=== PATIENT | female | born 1960 | race Caucasian/White ===

== ENCOUNTER 2016-07-24 22:33 | Emergency (ER) | payer SELFPAY ==
[2016-07-25] MEDS ORDERED: CLONIDINE 0.2 MG/24 HR PATCH.TDWK TD ONE (00:10)
[2016-07-25] MEDS ORDERED: PROMETHAZINE HCL INJ 25 MG/1 ML VIAL IM ONE (00:11)
[2016-07-25] MEDS ORDERED: KETOROLAC TROMETHAMINE INJ/PF 30 MG/1 ML SDV IM ONE (00:12)
--- NOTE | 2016-07-25 00:17 | ER Document Report ---
ED General - General Chief Complaint: Shoulder Pain Stated Complaint: SHOULDER PAIN INTO RIGHT HAND AND SWELING Time Seen by Provider: 07/24/16 23:55 Notes: Patient is a 56-year-old female presents with complaint of some soreness and also some nausea. She says some diarrhea. She ran out of her Percocet on . That was 4 days ago. She is getting a new doctor in 1 will start re- prescribing her medications. She is concerned because she does have body aches and pain all over and wants help. She says most her pain comes from her neck and goes into her arms. This is a chronic pain that she has had for a long time and that is why she is on the chronic pain medicines. No new recent injuries or trauma. No recent fevers or infections. No other complaints at this time. Patient was hypertensive in triage. She does take blood pressure medications and has been taking her medications. TRAVEL OUTSIDE OF THE [place] IN LAST 30 DAYS: No - Related Data Allergies/Adverse Reactions: Penicillins Allergy (Verified 07/24/16 22:52) Sulfa (Sulfonamide Antibiotics) Allergy (Verified 07/24/16 22:53) Past Medical History - Social History Smoking Status: Unknown if Ever Smoked Frequency of alcohol use: None Drug Abuse: None Family History: Reviewed & Not Pertinent Patient has suicidal ideation: No Patient has homicidal ideation: No Renal/ Medical History: Denies: Hx Peritoneal Dialysis Review of Systems - Review of Systems Notes: My Normal Review Basic REVIEW OF SYSTEMS: CONSTITUTIONAL : Denies fever, chills, or sweats. Denies recent illness. EENT: Denies eye, ear, throat, or mouth pain or symptoms. Denies nasal or sinus congestion. CARDIOVASCULAR: Denies chest pain. RESPIRATORY: Denies cough, cold, or chest congestion. Denies shortness of breath, difficulty breathing, or wheezing. GASTROINTESTINAL: Denies abdominal pain. Denies nausea, vomiting, or diarrhea. Denies constipation. Last BM: MUSCULOSKELETAL: Chronic neck pain that radiates into her arms. SKIN: Denies rash or skin lesions. NEUROLOGICAL: Denies altered mental status or loss of consciousness. Denies headache. Denies weakness or paralysis or loss of use of either side. Denies problems with gait or speech. Denies sensory or motor loss. ALL OTHER SYSTEMS REVIEWED AND NEGATIVE. Physical Exam - Vital signs Vitals: Temp Pulse Resp BP Pulse Ox 98.2 F 99 16 201/111 H 97 07/24/16 22:49 07/24/16 22:49 07/24/16 22:49 07/24/16 22:49 07/24/16 22:49 - Notes Notes: General Appearance: Well nourished, alert, cooperative, no acute distress, moderate obvious discomfort. Vitals: reviewed, See vital signs table. Head: no swelling or tenderness to the head Eyes: PERRL, EOMI, Conjuctiva clear Neck: Supple, soreness to palpation over bilateral cervical paraspinal musculature and into the trapezius muscles Lungs: No wheezing, No rales, No rhonci, No accessory muscle use, good air exchange bilaterally. Heart: Normal rate, Regular rythm, No murmur, no rub Abdomen: Normal BS, soft, No rigidity, No abdominal tenderness, No guarding, no rebound, no abdominal masses, no organomegaly Extremities: strength 5/5 in all extremities, good pulses in all extremities, some soreness to palpation of both upper extremities. No deformities. No restriction of movement of elbow joints. Equal distal pulses bilaterally, no edema. Skin: warm, dry, appropriate color, no rash Neuro: speech clear, oriented x 3, normal affect, responds appropriately to questions. Course - Vital Signs Vital signs: Temp Pulse Resp BP Pulse Ox 98.2 F 99 16 201/111 H 97 07/24/16 22:49 07/24/16 22:49 07/24/16 22:49 07/24/16 22:49 07/24/16 22:49 - EKG Interpretation by Me Additional EKG results interpreted by me: 07/25/16 00:21 EKG is reviewed and interpreted by me. EKG shows normal sinus rhythm with rate of 75 bpm. There was elevation or depression. No ischemic T-wave inversions. WA interval, QRS duration normal range. QTc interval slightly prolonged. No old EKG available for comparison. - Transfer of Care Notes: 07/25/16 00:16 The symptoms are consistent with that of opiate withdrawal. She has some hypertension. She has had some diarrhea as well as some nausea. I will place on a clonidine patch. I will have her follow-up with her new doctor on Monday for further treatment of her chronic pain conditions. She does have some neck pain going into her arms but says this is very consistent with her chronic pain but of course is more painful now than usual because she has been off her pain medications. Patient usually takes Percocet 10 mg tablets and has been on these for years. Patient otherwise looks well. Patient does have some hypertension which again is not surprising because of her being an opiate withdrawal currently. Patient has no chest pain. She has no difficulty breathing. She is in no distress. She has no focal neurologic deficits. She is well-appearing and I feel safe to be discharged home. Encouraged to return to ER if she has worsening of her symptoms. Patient agrees with plan discharged home. Dictation of this chart was performed using voice recognition software; therefore, there may be some unintended grammatical errors. Discharge - Discharge Clinical Impression: Opiate withdrawal, Chronic neck pain Hypertension Qualifiers: Hypertension type: essential hypertension Qualified Code(s): I10 - Essential ( primary) hypertension Condition: Stable Disposition: HOME, SELF-CARE Additional Instructions: Please return to the ER immediately if you develop chest pain, difficulty breathing, intractable vomiting, or have worsening of your symptoms. The Clonidine patch can stay on for 1 week. Please take it off if you start to have low blood pressure. Prescriptions: Promethazine HCl [Phenergan 25 mg Tablet] 25 mg PO Q6 #15 tablet
[2016-07-25] MEDS ORDERED: PROMETHAZINE HCL INJ 50 MG/1 ML VIAL ONE (00:27)
[2016-07-25] MEDS ORDERED: CLONIDINE 0.2 MG/24 HR PATCH.TDWK ONE (00:27)
[2016-07-25 01:10] VITALS: BP 190/103
--- NOTE | 2016-07-25 09:37 | EKG REPORT ---
SEVERITY:- ABNORMAL ECG - SINUS RHYTHM PROBABLE LEFT ATRIAL ABNORMALITY BORDERLINE INFERIOR Q WAVES BORDERLINE PROLONGED QT INTERVAL : Confirmed by: Loco Marks 25-Jul-2016 09:36:02
== END 2016-07-25 01:10 | disposition home or self-care (01) ==
LOC: ER 22:33
DX: F11.23 Opioid dependence with withdrawal (principal); R11.0 Nausea; R19.7 Diarrhea, unspecified; T40.2X5A Adverse effect of other opioids, initial encounter; G89.29 Other chronic pain; M54.2 Cervicalgia; I10 Essential (primary) hypertension; Z79.899 Other long term (current) drug therapy
CPT/HCPCS: 93005; 99283; 96372; 96374; 93010; J1885; J3490; J2550